=== PATIENT | female | born 1935 | race Caucasian/White ===

== ENCOUNTER 2016-10-04 17:09 | Inpatient (IN) ==
--- NOTE | 2016-10-04 17:28 | Emergency Department Note ---
Disposition Clinical Impression: Fecal impaction, Frail elderly, Hypoxemia, Sacral decubitus ulcer, Pneumonia, CHF (congestive heart failure), Anemia, Sepsis, Chronic kidney disease, stage III (moderate), Cardiac ischemia, Pacemaker, UTI (urinary tract infection) Disposition: Admitted As Inpatient Referrals: NO,PCP [Primary Care Provider] - Forms: ED Satisfaction Letter General Adult HPI - General Chief complaint: ED GI Bleed Stated complaint: rectal bleeding Time Seen by Provider: 10/04/16 17:18 Source: patient, family, EMS Limitations: altered mental status - History of Present Illness HPI Narrative: 81-year-old female comes in from the senior living, there is concern for potential rectal bleeding. The patient is taking anticoagulant injections. She was recently admitted to our hospital for what the family describes as a heart attack. She is DNR comfort care per her senior living paperwork and per her two relatives who are here with her. The patient denies any chest pain she has had a slight cough and some shortness of breath. She denies abdominal pain vomiting or diarrhea. There is no history of headache neck stiffness rash or fever no acute confusion convulsion dysarthria or difficulty moving the arms or legs independently. There is no history of weakness on one side of the body. No falls or injuries. There is no history of leg swelling. No history of vomiting bloody material. No history of urinary symptoms or bleeding from any other region apart from the rectal area. 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 Pain Scale: 9 - Related Data Home Medications Medication Instructions Recorded Confirmed Aspirin [Lo-Dose Aspirin EC] 81 mg PO QAM 09/16/16 09/16/16 Atorvastatin [Lipitor] 40 mg PO QPM 09/16/16 09/16/16 Cranberry Fruit Extract/Vit C [Azo 3 cap PO QAM 09/16/16 09/16/16 Cranberry Softgel] Levothyroxine Sodium [Levoxyl] 100 mcg PO QAM 09/16/16 09/16/16 Metoprolol XL (24 HR) Succ [Toprol 50 mg PO QAM 09/16/16 09/16/16 Xl] Multivit-Min/FA/Lycopen/Lutein 1 tab PO QAM 09/16/16 09/16/16 [Adults 50+ Multivitamin Tablet] [place]-3/Dha/Epa/Fish Oil [Fish Oil 1 cap PO QAM 09/16/16 09/16/16 1,000 mg Softgel] Previous Rx's Medication Instructions Recorded Acetaminophen [Tylenol] 650 mg PO Q6HR PRN #0 tablet 10/01/16 Amiodarone [Cordarone] 200 mg PO DAILY 30 Days 10/01/16 Amoxicillin/Clavulanate [Augmentin] 875 mg PO BIDWM 3 Days 10/01/16 Apixaban [Eliquis] 2.5 mg PO BID 30 Days 10/01/16 Budesonide/Formoterol 160/4.5 2 puff IH BIDR inhaler 10/01/16 [Symbicort 160/4.5] Calcitriol [Rocaltrol] 0.25 mcg PO DAILY capsule 10/01/16 Clopidogrel [Plavix] 75 mg PO DAILY tablet 10/01/16 Furosemide [Lasix] 20 mg PO Q12HR 30 Days 10/01/16 GuaiFENesin/Dextromethorphan 5 ml PO Q4HR PRN #0 udc 10/01/16 [Robitussin/Dm] HYDROcodone/Acet 5/325 mg [[place] 1 tab PO Q4HR PRN 7 Days 10/01/16 5-325 mg] Ipratropium/Albuterol Neb [Duoneb] 3 ml IH [id number] PRN #0 inhsol 10/01/16 Levofloxacin [Levaquin] 750 mg PO ONCE 1 Days 10/01/16 Nitroglycerin 0.4 mg SL Q5MIN PRN #0 tab.subl 10/01/16 Allergies Allergy/AdvReac Type Severity Reaction Status Date / Time Sulfa (Sulfonamide AdvReac Anaphylaxis Verified 09/16/16 10:00 Antibiotics) All systems ED: reviewed and negative except as stated. Past Medical History - Past Medical History Medical history: Reports: hyperlipidemia, hypertension, myocardial infarction, renal disease, thyroid disease Psychiatric history: Reports: no psych history - Social History Smoking Status: Former smoker Smokeless Tobacco Status: No Alcohol use: Reports: none Drug use: Reports: none Physical Exam - General Limitations: age General appearance: alert, in no apparent distress - Head Head exam: atraumatic, normocephalic, normal inspection - Eye Eye exam: Present: normal appearance, EOMI, miosis. Absent: scleral icterus, conjunctival injection, nystagmus, mydriasis - ENT ENT exam: normal exam, normal oropharynx, mucous membranes moist, TM's normal bilaterally, normal external ear exam - Neck Neck exam: Present: normal inspection, full ROM, trachea midline. Absent: tenderness, meningismus - Chest Chest inspection: Present: symmetric chest wall rise. Absent: tenderness - Respiratory Respiratory exam: Present: normal lung sounds bilaterally. Absent: respiratory distress - Cardiovascular Cardiovascular exam: Present: regular rate, normal rhythm, normal heart sounds - Abdominal Exam Abdominal exam: Present: soft, Non-Tender. Absent: tenderness, distention, guarding, rebound, rigidity, trauma - Rectal Exam Precision Thread Grinder Operator present during exam: Yes (Violetta/nurse) Rectal exam: Present: fecal impaction, other (Sacral decubitus oozing bright red blood and no major bleeding, the anus is somewhat dilated with stool packed in the rectal region appears to be a stool ball. No bloody stool or blackened stool is noted.). Absent: black stool, bloody stool - Female Precision Thread Grinder Operator present during exam: Yes - Extremities Exam Extremities exam: Present: normal inspection, full ROM, normal capillary refill , pedal edema. Absent: tenderness, joint swelling, calf tenderness - Expanded Lower Extremity Exam Hip/Pelvis exam: Present: normal inspection. Absent: tenderness Upper leg exam: Present: normal inspection. Absent: tenderness Knee exam: Present: normal inspection. Absent: tenderness Lower leg exam: Present: normal inspection. Absent: tenderness Ankle exam: Present: normal inspection. Absent: tenderness Foot/toe exam: Present: swelling. Absent: tenderness Neurovascular/Tendon exam: Present: normal capillary refill. Absent: motor deficit, sensory deficit, tendon deficit - Back Exam Back exam: Present: normal inspection, full ROM. Absent: tenderness, CVA tenderness (R), CVA tenderness (L), vertebral tenderness - Neurological Exam Neurological exam: Present: alert, CN II-XII intact. Absent: motor sensory deficit - Psychiatric Psychiatric exam: Present: normal affect - Skin Skin exam: Present: warm, dry, intact, normal color. Absent: rash, cyanosis, diaphoresis, erythema, pallor, mottled Course Vital Signs Temperature 0 F L 10/04/16 17:10 Pulse Rate 65 10/04/16 17:10 Respiratory Rate 22 10/04/16 17:10 Blood Pressure 125/49 10/04/16 17:10 O2 Sat by Pulse Oximetry 87 L 10/04/16 17:10 Temperature 97.6 F 10/04/16 18:46 Pulse Rate 65 10/04/16 19:10 Respiratory Rate 24 10/04/16 19:10 Blood Pressure 138/105 10/04/16 19:10 O2 Sat by Pulse Oximetry 92 L 10/04/16 19:10 Oxygen Delivery Oxygen Delivery Nasal Cannula Medical Decision Making - MDM Narrative Medical decision making narrative: The patient has significant opacification of her lungs, she is hypoxemic, she has an elevated BNP, likely superimposed pneumonitis and heart failure compounded by coronary ischemia. She appears to have urinary infectious changes as well. IV antibiotics initiated, worsening renal function noted. I discussed the case with the hospitalist on-call Dr. Mccallum was accepted the patient to their care. The patient and family are highly amenable to admission for further treatment. THe patient meets sepsis criteria, judicious fluid management secondary to CHF and coronary ischemia is warranted. The patient is DNR comfort care however she is requiring oxygen at this time and has marked pulmonary changes, further evaluation and management or the hospitalist. - Lab Data Lab results reviewed: Yes I reviewed the patient's lab results. Result diagrams: 10/04/16 17:51 10/04/16 17:51 Lab Results 10/04/16 10/04/16 10/04/16 Range/Units 17:51 17:51 17:51 WBC 12.7 H (4.3-11.1) K/mcL RBC 2.89 L (3.82-4.97) M/mcL Hgb 8.0 L (11.5-15.4) g/dL Hct 25.7 L (35.3-44.9) % MCV 88.9 (83.0-100.0) fL MCH 27.7 L (28.0-33.3) pg MCHC 31.1 L (31.6-35.5) g/dL RDW 23.9 H (11.5-14.5) % Plt Count 179 (140-400) K/mcL MPV 10.8 (9.4-12.4) fL Immature Gran % 0.9 (0-4) % Seg Neutrophils % 84.6 % Lymphocytes % 8.2 % Monocytes % 6.0 % Eosinophils % 0.1 % Basophils % 0.2 % Neutrophils # 10.7 H (1.6-8.9) K/mcL Lymphocytes # 1.0 (0.6-4.6) K/mcL Monocytes # 0.8 (0.0-1.3) K/mcL Eosinophils # 0.0 (0.0-0.6) K/mcL Basophils # 0.0 (0.0-0.2) K/mcL Nucleated RBCs/100 WBC 0.9 H (0) /100 WBC Hypochromasia Present A (Not Present) Anisocytosis 1+ A (Not Present) Microcytosis Present A (Not Present) Macrocytosis Present A (Not Present) PT 22.1 H (9.4-12.1) Seconds INR 2.0 APTT 37.4 H (26.0-36.0) Seconds Sodium (136-145) mEq/L Potassium (3.5-4.5) mEq/L Chloride (98-109) mEq/L Carbon Dioxide (19-29) mEq/L BUN (7-20) mg/dL Creatinine (0.57-1.11) mg/dL Est GFR ( Amer) (> 60) Est GFR (Non-Af Amer) (> 60) BUN/Creatinine Ratio (6-26) Glucose (70-99) mg/dL Calculated Osmolality (280-300) Lactic Acid 1.7 (0.5-2.2) mmol/L Calcium (8.6-10.8) mg/dL Total Bilirubin (0.2-1.2) mg/dL Direct Bilirubin (0.0-0.5) mg/dL Indirect Bilirubin (0.0-1.2) mg/dL AST (5-34) Units/L ALT (0-55) Units/L Alkaline Phosphatase (38-126) Units/L Troponin I (0-0.03) ng/mL C-Reactive Protein (Less than 5) mg/L B-Natriuretic Peptide (0-100) pg/mL Serum Total Protein (6.0-8.3) g/dL Albumin (3.5-5.0) g/dL Globulin (2.4-3.5) g/dL Albumin/Globulin Ratio (1.1-2.2) Urine Color (Yellow) Urine Clarity (Clear) Urine pH (5.0-8.0) pH Units Ur Specific [place] (1.010-1.025) Urine Protein (Neg-Trace) mg/dL Urine Glucose (UA) (Normal) mg/dL Urine Ketones (Negative) mg/dL Urine Blood (Negative) Urine Nitrite (Negative) Urine Bilirubin (Negative) Urine Urobilinogen (Normal) mg/dL Ur Leukocyte Esterase (Negative) Urine Microscopic RBC (0-3) per hpf Urine Microscopic WBC (0-3) per hpf Ur Squamous Epith Cells (None-Few) per lpf Ur Culture Indicated? (NO) 10/04/16 10/04/16 10/04/16 Range/Units 17:51 17:51 17:51 WBC (4.3-11.1) K/mcL RBC (3.82-4.97) M/mcL Hgb (11.5-15.4) g/dL Hct (35.3-44.9) % MCV (83.0-100.0) fL MCH (28.0-33.3) pg MCHC (31.6-35.5) g/dL RDW (11.5-14.5) % Plt Count (140-400) K/mcL MPV (9.4-12.4) fL Immature Gran % (0-4) % Seg Neutrophils % % Lymphocytes % % Monocytes % % Eosinophils % % Basophils % % Neutrophils # (1.6-8.9) K/mcL Lymphocytes # (0.6-4.6) K/mcL Monocytes # (0.0-1.3) K/mcL Eosinophils # (0.0-0.6) K/mcL Basophils # (0.0-0.2) K/mcL Nucleated RBCs/100 WBC (0) /100 WBC Hypochromasia (Not Present) Anisocytosis (Not Present) Microcytosis (Not Present) Macrocytosis (Not Present) PT (9.4-12.1) Seconds INR APTT (26.0-36.0) Seconds Sodium 137 (136-145) mEq/L Potassium 3.8 (3.5-4.5) mEq/L Chloride 104 (98-109) mEq/L Carbon Dioxide 19 (19-29) mEq/L BUN 85 H (7-20) mg/dL Creatinine 2.12 H (0.57-1.11) mg/dL Est GFR ( Amer) 27 L (> 60) Est GFR (Non-Af Amer) 22 L (> 60) BUN/Creatinine Ratio 40 H (6-26) Glucose 103 H (70-99) mg/dL Calculated Osmolality 310 H (280-300) Lactic Acid (0.5-2.2) mmol/L Calcium 10.1 (8.6-10.8) mg/dL Total Bilirubin 1.7 H (0.2-1.2) mg/dL Direct Bilirubin 0.7 H (0.0-0.5) mg/dL Indirect Bilirubin 1.0 (0.0-1.2) mg/dL AST 49 H (5-34) Units/L ALT 48 (0-55) Units/L Alkaline Phosphatase 79 (38-126) Units/L Troponin I 0.16 H* (0-0.03) ng/mL C-Reactive Protein 69 H (Less than 5) mg/L B-Natriuretic Peptide 4189 H (0-100) pg/mL Serum Total Protein 6.1 (6.0-8.3) g/dL Albumin 2.3 L (3.5-5.0) g/dL Globulin 3.8 H (2.4-3.5) g/dL Albumin/Globulin Ratio 0.6 L (1.1-2.2) Urine Color (Yellow) Urine Clarity (Clear) Urine pH (5.0-8.0) pH Units Ur Specific [place] (1.010-1.025) Urine Protein (Neg-Trace) mg/dL Urine Glucose (UA) (Normal) mg/dL Urine Ketones (Negative) mg/dL Urine Blood (Negative) Urine Nitrite (Negative) Urine Bilirubin (Negative) Urine Urobilinogen (Normal) mg/dL Ur Leukocyte Esterase (Negative) Urine Microscopic RBC (0-3) per hpf Urine Microscopic WBC (0-3) per hpf Ur Squamous Epith Cells (None-Few) per lpf Ur Culture Indicated? (NO) 10/04/16 Range/Units 18:13 WBC (4.3-11.1) K/mcL RBC (3.82-4.97) M/mcL Hgb (11.5-15.4) g/dL Hct (35.3-44.9) % MCV (83.0-100.0) fL MCH (28.0-33.3) pg MCHC (31.6-35.5) g/dL RDW (11.5-14.5) % Plt Count (140-400) K/mcL MPV (9.4-12.4) fL Immature Gran % (0-4) % Seg Neutrophils % % Lymphocytes % % Monocytes % % Eosinophils % % Basophils % % Neutrophils # (1.6-8.9) K/mcL Lymphocytes # (0.6-4.6) K/mcL Monocytes # (0.0-1.3) K/mcL Eosinophils # (0.0-0.6) K/mcL Basophils # (0.0-0.2) K/mcL Nucleated RBCs/100 WBC (0) /100 WBC Hypochromasia (Not Present) Anisocytosis (Not Present) Microcytosis (Not Present) Macrocytosis (Not Present) PT (9.4-12.1) Seconds INR APTT (26.0-36.0) Seconds Sodium (136-145) mEq/L Potassium (3.5-4.5) mEq/L Chloride (98-109) mEq/L Carbon Dioxide (19-29) mEq/L BUN (7-20) mg/dL Creatinine (0.57-1.11) mg/dL Est GFR ( Amer) (> 60) Est GFR (Non-Af Amer) (> 60) BUN/Creatinine Ratio (6-26) Glucose (70-99) mg/dL Calculated Osmolality (280-300) Lactic Acid (0.5-2.2) mmol/L Calcium (8.6-10.8) mg/dL Total Bilirubin (0.2-1.2) mg/dL Direct Bilirubin (0.0-0.5) mg/dL Indirect Bilirubin (0.0-1.2) mg/dL AST (5-34) Units/L ALT (0-55) Units/L Alkaline Phosphatase (38-126) Units/L Troponin I (0-0.03) ng/mL C-Reactive Protein (Less than 5) mg/L B-Natriuretic Peptide (0-100) pg/mL Serum Total Protein (6.0-8.3) g/dL Albumin (3.5-5.0) g/dL Globulin (2.4-3.5) g/dL Albumin/Globulin Ratio (1.1-2.2) Urine Color Yellow (Yellow) Urine Clarity Cloudy A (Clear) Urine pH 5.5 (5.0-8.0) pH Units Ur Specific [place] 1.018 (1.010-1.025) Urine Protein Negative (Neg-Trace) mg/dL Urine Glucose (UA) Normal (Normal) mg/dL Urine Ketones Negative (Negative) mg/dL Urine Blood Large H (Negative) Urine Nitrite Negative (Negative) Urine Bilirubin Negative (Negative) Urine Urobilinogen Normal (Normal) mg/dL Ur Leukocyte Esterase Moderate H (Negative) Urine Microscopic RBC 5-15 H (0-3) per hpf Urine Microscopic WBC 15-30 H (0-3) per hpf Ur Squamous Epith Cells Moderate H (None-Few) per lpf Ur Culture Indicated? YES A (NO) - Radiology Data Radiology results reviewed: Yes I reviewed the patient's radiology results.
[2016-10-04] MEDS ORDERED: 0.9 % Sodium Chloride 1,000 ML IVC ONE (17:33)
[2016-10-04 18:12] LABS: Basophils % 0.2 %; Eosinophils % 0.1 %; Hematocrit 25.7 % (35.3-44.9); Immature Granulocytes % 0.9 % (0-4); Lymphocytes % 8.2 %; Mean Corpuscular HGB Conc 31.1 g/dL (31.6-35.5); Mean Corpuscular Hemoglobin 27.7 pg (28.0-33.3); Mean Corpuscular Volume 88.9 fL (83.0-100.0); Mean Platelet Volume 10.8 fL (9.4-12.4); Monocytes # 0.8 K/mcL (0.0-1.3); Neutrophils # 10.7 K/mcL (1.6-8.9); Nucleated Red Blood Cells 0.9 /100 WBC (0); Platelet Count 179 K/mcL (140-400); Red Blood Count 2.89 M/mcL (3.82-4.97); Red Cell Distribution Width 23.9 % (11.5-14.5); Segmented Neutrophils % 84.6 %
[2016-10-04 18:13] LABS: Prothrombin Time 22.1 Seconds (9.4-12.1)
[2016-10-04 18:16] LABS: Activated Partial Thrombo Time 37.4 Seconds (26.0-36.0)
[2016-10-04 18:26] LABS: Albumin 2.3 g/dL (3.5-5.0); Albumin/Globulin Ratio 0.6 (1.1-2.2); Bilirubin,Direct 0.7 mg/dL (0.0-0.5); Bilirubin,Total 1.7 mg/dL (0.2-1.2); Calcium 10.1 mg/dL (8.6-10.8); Globulin 3.8 g/dL (2.4-3.5); Potassium 3.8 mEq/L (3.5-4.5); Total Protein 6.1 g/dL (6.0-8.3)
[2016-10-04 18:32] LABS: Bilirubin,Urine Negative (Negative); Blood,Urine Large (Negative); Clarity,Urine Cloudy (Clear); Color,Urine Yellow (Yellow); Glucose,Urine (UA) Normal (Normal); Ketones,Urine Negative (Negative); Leukocyte Esterase,Urine Moderate (Negative); Nitrite,Urine Negative (Negative); PH,Urine 5.5 pH Units (5.0-8.0); Protein,Urine Negative (Neg-Trace); Specific Gravity,Urine 1.018 (1.010-1.025); Urobilinogen,Urine Normal (Normal)
[2016-10-04 18:34] LABS: Anisocytosis 1+ (Not Present); Hypochromasia Present (Not Present); Macrocytosis Present (Not Present); Microcytosis Present (Not Present)
[2016-10-04] MEDS ORDERED: Aspirin 325 MG TABLET PO ONE (18:39)
[2016-10-04 18:49] LABS: Squamous Epithelial Cell,Urine Moderate per lpf (None-Few)
[2016-10-04 18:50] LABS: WBC,Urine 15-30 per hpf (0-3)
[2016-10-04] MEDS ORDERED: Piperacillin/Tazobactam 3.375 GM in D5% in Water (Mini-Bag+) 100 ML IVPB ONE (19:17)
[2016-10-04] MEDS ORDERED: Levofloxacin 750 MG/150 ML 750 MG/150 ML BAG IVPB SCH (19:20)
[2016-10-04] MEDS ORDERED: Naloxone 0.4 MG/ML INJ IVP PRN (22:50)
[2016-10-04] MEDS ORDERED: Acetaminophen 325 MG TABLET PO PRN (22:50)
[2016-10-04] MEDS ORDERED: Albuterol 2.5 MG/3 ML NEBULIZER IH PRN (23:03)
--- NOTE | 2016-10-04 23:12 | Internal Med History&Physical ---
Date of Encounter: 10/05/16 Time of Encounter: 22:30 Assessment and Plan (1) Acute respiratory failure with hypoxia Current visit: Yes Status: Acute 1 she is hypoxic she has an elevated BNP x-ray with left sided opacity pleural effusion likely pneumonia and heart failure. Will obtain CT chest to rule out fluid or possible mucus plugging. Possible thoracentesis for comfort. 2 continue with oxygen titrated to maintain SpO2 > 92% 3 lasix 4 duonebs (2) Pleural effusion on left Current visit: Yes Status: Acute [address] of chest- possible thoracentesis in a.m. 2 oxygen to maintain SP O2 greater than 92% 3 Lasix/antibiotics (3) CHF (congestive heart failure) Current visit: Yes Status: Acute 1 patient's EF is 40%- oxygen as needed 2 we will continue with Lasix 3 monitor intake and output daily weights 4 low-sodium diet Qualifiers: Congestive heart failure type: systolic Congestive heart failure chronicity : acute on chronic Qualified Code(s): I50.23 - Acute on chronic systolic ( congestive) heart failure (4) CKD (chronic kidney disease) stage 3, GFR 30-59 ml/min Current visit: Yes Status: Acute 1 patient's creatinine is increased to 2.12 previous creatinine 1.8- 2.0 - will monitor creatinine 2 we will avoid nephrotoxins 3. will monitor I/O (5) DVT prophylaxis Current visit: No Status: Chronic 1 SAGE deras patient is on Eliquis Internal Medicine - H&P: HPI Chief complaint: rectal bleeding Admitted From: Long-term Nursing Facility Plans for Post Hospital Care: Transfer [facility] History of present illness: Ms. Hartman is a 81 year old female past medical history of hyperlipidemia hypertension AR atrial fibrillation pacemaker placement congestive heart failure CK D3. The patient was admitted recently to this facility with a non- STEMI, she was treated medically and was discharged to a extended care facility for further rehabilitation. According to [facility] paperwork patient is a DNR CC. Information was obtained from medical records due to the patient's increased shortness of breath and inability to answer questions. The patient was sent to the ED by the nursing staff at the [facility] stating that she was experiencing bleeding from her rectum. The patient is on Eliquis for her atrial fibrillation. Per ER report the patient had a pressure ulcer on her sacrum which was oozing blood. Her anus is dilated with stool impacted into the rectal vault. There is no bloody stool or black stool in the rectum. The patient appeared to be in respiratory distress she is hypoxic 87% SPO2 chest x- ray revealed a near complete opacification of the left lung suspicious for large left pleural effusion with partial atelectasis of the left lung. Urinalysis also revealed a UTI. Her white count is 12.7 BUN is 85 and creatinine was 2.12 Blood cultures were obtained the patient was initiated on IV antibiotics. She has been admitted for further workup evaluation. Presently the patient appears to be in moderate respiratory distress she is audible wheezes and rhonchi. She is 93% on 3 L nasal cannula. She denies any chest pain this time. I will obtain a STAT CT of her chest to evaluate pleural effusion and possible need for thoracentesis. I discussed the case with Dr Velarde who agrees with plan. Past Med Surg Social Fam HX - Past Medical History Medical history: hyperlipidemia, hypertension, myocardial infarction, renal disease, thyroid disease Psychiatric history: no psych history - Social History Smoking Status: Former smoker Smokeless Tobacco Status: No Alcohol use: none Drug use: none - Family History Daughter Adopted: No Family Member Ethnicity: Non- Living Status: Internal Medicine - H&P: Meds Aspirin [Lo-Dose Aspirin EC] 81 mg PO QAM 09/16/16 [History] Atorvastatin [Lipitor] 40 mg PO QPM 09/16/16 [History] Cranberry Fruit Extract/Vit C [Azo Cranberry Softgel] 3 cap PO QAM 09/16/16 [ History] Levothyroxine Sodium [Levoxyl] 100 mcg PO QAM 09/16/16 [History] Metoprolol XL (24 HR) Succ [Toprol Xl] 50 mg PO QAM 09/16/16 [History] Multivit-Min/FA/Lycopen/Lutein [Adults 50+ Multivitamin Tablet] 1 tab PO QAM [History] [place]-3/Dha/Epa/Fish Oil [Fish Oil 1,000 mg Softgel] 1 cap PO QAM 09/16/16 [ History] Acetaminophen [Tylenol] 650 mg PO Q6HR PRN #0 tablet 10/01/16 [Rx] Amiodarone [Cordarone] 200 mg PO DAILY 30 Days 10/01/16 [Rx] Amoxicillin/Clavulanate [Augmentin] 875 mg PO BIDWM 3 Days 10/01/16 [Rx] Apixaban [Eliquis] 2.5 mg PO BID 30 Days 10/01/16 [Rx] Budesonide/Formoterol 160/4.5 [Symbicort 160/4.5] 2 puff IH BIDR inhaler [Rx] Calcitriol [Rocaltrol] 0.25 mcg PO DAILY capsule 10/01/16 [Rx] Clopidogrel [Plavix] 75 mg PO DAILY tablet 10/01/16 [Rx] Furosemide [Lasix] 20 mg PO Q12HR 30 Days 10/01/16 [Rx] GuaiFENesin/Dextromethorphan [Robitussin/Dm] 5 ml PO Q4HR PRN #0 udc 10/01/16 [ Rx] HYDROcodone/Acet 5/325 mg [Drew 5-325 mg] 1 tab PO Q4HR PRN 7 Days 10/01/16 [Rx ] Ipratropium/Albuterol Neb [Duoneb] 3 ml IH [id number] PRN #0 inhsol 10/01/16 [Rx] Levofloxacin [Levaquin] 750 mg PO ONCE 1 Days 10/01/16 [Rx] Nitroglycerin 0.4 mg SL Q5MIN PRN #0 tab.subl 10/01/16 [Rx] Allergies Sulfa (Sulfonamide Antibiotics) Adverse Reaction (Verified 09/16/16 10:00) Anaphylaxis ROS unobtainable: other All Systems PM: A 10-system review of systems was performed and is negative for pertinent findings except as documented above in the HPI. Review of systems: Unable to radiate due to shortness of breath - Constitutional Vitals: Temp Pulse Resp BP Pulse Ox 98.1 F 61 16 137/88 91 L 10/04/16 22:12 10/04/16 22:12 10/04/16 22:12 10/04/16 22:12 10/04/16 22:12 Exam: Moderate respiratory distress - Head Head exam: Present: atraumatic, normocephalic - Neck Neck exam general surgery: Present: supple, trachea midline. Absent: lymphadenopathy - Respiratory Respiratory exam: Present: respiratory distress, rhonchi, wheezes. Absent: accessory muscle use, rales Additional comments: Audible wheezes, rhonchi - Cardiovascular Cardiovascular exam: Present: distant heart sounds, RRR, +S1, +S2. Absent: diastolic murmur, gallop, rubs, systolic murmur - GI/Abdominal GI/Abdominal exam: Present: normal bowel sounds, soft, no peritoneal signs. Absent: distended, tenderness - Rectal Rectal exam: Present: fecal impaction - Neurological Exam Neurological exam: Present: oriented X3. Absent: pronater drift, facial droop, speech deficit - Skin Skin exam: Present: dry, intact Additional comments: Ecchymosis different stages of healing Internal Med - H&P Results - Labs CBC & Chem 7: 10/04/16 17:51 10/04/16 17:51 - Diagnostic Studies Chest x-ray Additional comments: Per radiology read near-complete opacification of the left lung is suspicious for large left pleural effusion with probable partial atelectasis of the left lung. Superimposed edema or pneumonia is suspected in both lungs
[2016-10-05 05:09] LABS: Basophils % 0.1 %; Eosinophils % 0.1 %; Hematocrit 25.1 % (35.3-44.9); Hemoglobin 7.8 g/dL (11.5-15.4); Immature Granulocytes % 0.7 % (0-4); Lymphocytes # 1.2 K/mcL (0.6-4.6); Lymphocytes % 7.1 %; Mean Corpuscular HGB Conc 31.1 g/dL (31.6-35.5); Mean Corpuscular Hemoglobin 27.8 pg (28.0-33.3); Mean Corpuscular Volume 89.3 fL (83.0-100.0); Mean Platelet Volume 10.7 fL (9.4-12.4); Monocytes % 5.9 %; Nucleated Red Blood Cells 0.8 /100 WBC (0); Platelet Count 157 K/mcL (140-400); Red Blood Count 2.81 M/mcL (3.82-4.97); Red Cell Distribution Width 23.9 % (11.5-14.5); Segmented Neutrophils % 86.1 %
[2016-10-05 05:23] LABS: Calcium 9.9 mg/dL (8.6-10.8); Potassium 3.9 mEq/L (3.5-4.5)
[2016-10-05 05:27] LABS: Neutrophils # 14.5 K/mcL (1.6-8.9)
[2016-10-05 05:59] LABS: Anisocytosis 2+ (Not Present); Basophilic Stippling 2+ (Not Present); Macrocytosis Present (Not Present); Platelet Estimate Normal (Normal); Polychromasia 2+ (Not Present)
[2016-10-05 06:00] LABS: Poikilocytosis 1+ (Not Present)
[2016-10-05] MEDS ORDERED: Piperacillin/Tazobactam 3.375 GM in D5% in Water (Mini-Bag+) 100 ML IVPB SCH ×2 (06:00→08:00)
[2016-10-05 06:01] LABS: Target Cells 1+ (Not Present)
[2016-10-05] MEDS: Ipratropium/Albuterol Neb 3 ML IH SCH ×4 (06:49→22:29)
[2016-10-05] MEDS ORDERED: Levofloxacin 750 MG/150 ML 750 MG/150 ML BAG IVPB SCH (09:00)
[2016-10-05] MEDS: Furosemide 40 MG/4 ML VIAL IVP SCH ×2 (10:30→17:03)
[2016-10-05] MEDS: *HR* Morphine 2 MG/ML SYRINGE IVP PRN ×2 (10:30→17:03)
[2016-10-05] MEDS ORDERED: *HR* Heparin 5,000 UNIT/ML VIAL IVP ONE (13:13)
[2016-10-05] MEDS ORDERED: *HR* Heparin 5,000 UNIT/ML VIAL IVP PRN ×2 (13:13)
[2016-10-05] MEDS ORDERED: Heparin 25,000 UNIT/500 ML D5W 25,000 UNIT/500 ML MLS IVC SCH (13:15)
[2016-10-05] MEDS ORDERED: *HR* HYDROcodone/Acet 7.5/325 mg TABLET PO PRN (13:39)
[2016-10-05 13:43] LABS: Hematocrit 25.7 % (35.3-44.9); Immature Platelets 3.6 % (1.1-6.1); Mean Corpuscular HGB Conc 31.1 g/dL (31.6-35.5); Mean Corpuscular Hemoglobin 28.1 pg (28.0-33.3); Mean Corpuscular Volume 90.2 fL (83.0-100.0); Mean Platelet Volume 10.7 fL (9.4-12.4); Red Blood Count 2.85 M/mcL (3.82-4.97); Red Cell Distribution Width 24.9 % (11.5-14.5)
[2016-10-05 13:50] LABS: Prothrombin Time 21.8 Seconds (9.4-12.1)
[2016-10-05 13:53] LABS: Activated Partial Thrombo Time 37.9 Seconds (26.0-36.0)
--- NOTE | 2016-10-05 14:59 | Internal Med Progress Note ---
Date of Encounter: 10/05/16 Time of Encounter: 14:51 - Assessment and plan (1) Acute respiratory failure with hypoxia Current Visit: Yes Status: Acute Assessment and plan: CTA showed b/l pulmonary edema less likely pnuemonia,started on IV lasix. saturating well on 4 l now, will continue the NC trace pleural effusion, so will not benefit from thoracentesis. (2) CHF (congestive heart failure) Current Visit: Yes Status: Acute Assessment and plan: patient's EF is 40%- oxygen as needed we will continue with Lasix monitor intake and output daily weights low-sodium diet Qualifiers: Congestive heart failure type: systolic Congestive heart failure chronicity : acute on chronic Qualified Code(s): I50.23 - Acute on chronic systolic ( congestive) heart failure (3) CKD (chronic kidney disease) stage 3, GFR 30-59 ml/min Current Visit: Yes Status: Acute Assessment and plan: patient's creatinine is increased to 2.12 previous creatinine 1.8- 2.0 - will monitor creatinine we will avoid nephrotoxins will monitor I/O (4) Frail elderly Current Visit: Yes Status: Acute (5) Atrial fibrillation Current Visit: No Status: Chronic Assessment and plan: rate controlled for now. home med list shows eliquis , however on questioning the daughter in law, she says she was not on eliquis at home she may have been added when she left for [place] last time/ will start on heparin drip as and stop elliquis for now. Qualifiers: Atrial fibrillation type: chronic Qualified Code(s): I48.2 - Chronic atrial fibrillation (6) CAD (coronary artery disease) Current Visit: No Status: Chronic Assessment and plan: EF 40%. Recommend medical management as per cardiology and patient's wish. Continue ASA, Plavix, statin, BB, amiodarone. Not on ACEI/ARB due to CKD stage 3 /4. Qualifiers: Coronary Disease-Associated Artery/Lesion type: [place] artery [place] vs. transplanted heart: [place] heart Associated angina: without angina Qualified Code(s): I25.10 - Atherosclerotic heart disease of [place] coronary artery without angina pectoris (7) Ischemia of both lower extremities Current Visit: Yes Status: Acute Assessment and plan: she was noted to have no peripheral pulses b/l. home meds include elliquis on the list, less likely to have embolized or have a clot with elliquis, however unsure if she was taking that at [place]. severe pain, both limbs are cold and mottling. will start on heparin drip, unable to get vascular today as there is no coverage today. cant get angioplasty given CKD> will consult vascular tomm. case has been discussed with the POA and the patient, they agreed with the plan. - Time Spent With Patient 25 - 35 minutes - Subjective Interval history: seen at the bedside, c/o left leg pain below her knees. no swelling but has mottling discolourtaion in both her feet, no peripheral pulses felt b/l. appears to be mildly dyspneic , denies fever. - Constitutional Vitals: Temp Pulse Resp BP Pulse Ox 97.4 F L 73 20 120/60 92 L 10/05/16 05:56 10/05/16 05:56 10/05/16 05:56 10/05/16 05:56 10/05/16 05:56 General appearance: Present: A&O X 2, mild distress Exam: neck- supple chest- b/l occasional creptns, no wheezing cvs-s1 and s2, no mr//g abd-soft, non tender, bs are present ext-no leg edema, has purplish mottling b/l feet, peripheral pulses not palpable. Internal Medicine: Result - Labs CBC & Chem 7: 10/05/16 13:28 10/05/16 03:42 Labs: Short CBC 10/05/16 10/05/16 Range/Units 03:42 13:28 WBC 16.8 H 14.8 H (4.3-11.1) K/mcL Hgb 7.8 L 8.0 L (11.5-15.4) g/dL Hct 25.1 L 25.7 L (35.3-44.9) % Plt Count 157 162 (140-400) K/mcL Neutrophils # 14.5 H (1.6-8.9) K/mcL BMP 10/05/16 03:42 Sodium 137 Potassium 3.9 Chloride 104 Carbon Dioxide 19 BUN 90 H Creatinine 2.11 H Glucose 106 H Calcium 9.9 - ABG Interpretation ABG results: PT/INR, D-dimer PT 21.8 Seconds (9.4-12.1) H 10/05/16 13:28 - Impressions Impressions Chest CT 10/04/16 23:01 IMPRESSION: 1. Scattered ground-glass opacities throughout both lungs, suspicious for edema. Pneumonia may also be considered in differential diagnosis. Findings appear worse since comparison exam. Trace bilateral pleural effusion. 2. Cardiomegaly and CAD. D/ / 10/05/2016 07:39:29 Moy Paredes MD / earnold Interpreting Provider: Moy Paredes MD - VTE Documentation of Mechanical Device: Graduated compression elastic hosiery Consult Discharge Plan - Plan Referrals: NO,PCP [Primary Care Provider] -
[2016-10-05] MEDS: *HR* Amiodarone 200 MG TABLET PO SCH (17:03)
[2016-10-05 21:08] LABS: Activated Partial Thrombo Time 132.1 Seconds (26.0-36.0)
[2016-10-05 21:29] LABS: Heparin anti-factor XA UFH 1.97 IU/mL (0.30-0.70)
[2016-10-05] MEDS: Budesonide/Formoterol 160/4.5 MDI IH SCH (22:29)
[2016-10-06] MEDS: Haloperidol Lactate 5 MG/ML VIAL IVP PRN ×2 (01:48→09:45)
[2016-10-06] MEDS: Ipratropium/Albuterol Neb 3 ML IH SCH ×3 (04:39→16:10)
[2016-10-06 05:09] LABS: Activated Partial Thrombo Time 178.8 Seconds (26.0-36.0)
[2016-10-06 05:40] LABS: Heparin anti-factor XA UFH 1.7 IU/mL (0.30-0.70)
[2016-10-06] MEDS ORDERED: *HR* Morphine 2 MG/ML SYRINGE IVP PRN (05:40)
--- NOTE | 2016-10-06 07:25 | Arterial Study Report ---
LE Arterial Physiologic Study Patient Name:Mary Anne Hartman Order Number:[id number] Procedure Date:10/05/2016 Date:1935ge:81 yrs Gender:Female Lt BP:110 / mmHg Location:[facility] Room #: 2A45 Software Quality Analyst:Antonio Brandon Referring MD:Robert Ashby MD wholesale and retail merchant:None Reading MD:Nakul Rasmussen MD Primary Indications:Mottling with no pulse found Risk Factors Yes/No Hypertension Yes Hypercholesterolemia Yes Smoker Previous Yes Anticoagulants Yes Hx of CAD/PTCA Yes Impressions: Criticial disease is present in the bialteral lower extremities. RABI: 0.0 LABI: 0.0 Recommendations: Further evaluation is recommended. After imaging the patient returned to their room. Critical findings reported to news librarian in person by Antonio Brandon. Findings LE Arterial Physiologic Exam: Segmental Pressures: Right: The posterior tibial and dorsalis pedis pressure on the right was not obtained secondary to no audible Doppler signal. Left: The posterior tibial and dorsalis pedis pressure on the left was not obtained secondary to no audible Doppler signal. PVR: Right: The PVR waveforms are absent in the right ankle. Left: The PVR waveforms are absent in the left ankle. Physiologic Test Results: No pulse found bilateral. unable to put BP cuff on right arm. Prior Study: No prior study available for comparison. Segmental Pressures Side Location Pressure Index Result Right Posterior Tibial 0 Severely Diminished Right Dorsalis Pedis 0 Severely Diminished Left Posterior Tibial 0 Severely Diminished Left Dorsalis Pedis 0 Severely Diminished Ankle Brachial Index Right Systolic Diastolic SRINI Brachial 1.00 Posterior Tibial 110 1.00 Left Systolic Diastolic SRINI Brachial 110 Updated by Nakul Rasmussen MD on 10/06/2016 7:18:43 AM with Status of Final electronically signed on 10/06/2016 7:19:31 AM with status of Final
[2016-10-06] MEDS ORDERED: Levofloxacin 750 MG/150 ML 750 MG/150 ML BAG IVPB SCH (08:00)
[2016-10-06] MEDS ORDERED: Metoprolol XL (24 HR) Succ 50 MG TAB.ER.24H PO SCH (09:00)
[2016-10-06] MEDS: Furosemide 40 MG/4 ML VIAL IVP SCH (09:40)
[2016-10-06] MEDS: Budesonide/Formoterol 160/4.5 MDI IH SCH (10:33)
[2016-10-06 12:03] VITALS: BP 98/46
[2016-10-06] MEDS ORDERED: 0.9 % Sodium Chloride 1,000 ML IVC SCH (12:30)
[2016-10-06] MEDS ORDERED: Haloperidol Lactate 5 MG/ML VIAL IVP PRN (12:30)
[2016-10-06] MEDS: *HR* Amiodarone 200 MG TABLET PO SCH (13:07)
--- NOTE | 2016-10-06 13:46 | Vascular/Endovasc Consult Note ---
Date of Encounter: 10/06/16 Time of Encounter: 13:15 Assessment and Plan (1) Frail elderly Current Visit: Yes Status: Acute The patient is in end-stage state. (2) Aortic occlusion Current Visit: Yes Status: Acute Profound ischemia of lower extremities. Patient is not a candidate for any intervention. The patient is a DNR which is appropriate for her present state with pulmonary edema and hypoxemia. I discussed in detail with the patient's daughter the ongoing pathophysiology. I have recommended no therapeutic intervention and agree with comfort care principles only. The intravenous heparin drip may be discontinued. (3) CHF (congestive heart failure) Current Visit: No Status: Chronic End-stage congestive heart failure with pulmonary edema and hypoxemia. Qualifiers: Congestive heart failure type: systolic Congestive heart failure chronicity : acute on chronic Qualified Code(s): I50.23 - Acute on chronic systolic ( congestive) heart failure - History of Present Illness Consult date: 10/06/16 Consult reason: Bilateral lower extremity ischemia Chief complaint: Patient is nonverbal History of present illness: Ms. Hartman is a 81 year old female Admitted via the emergency room on October 04 with concern about lower GI bleeding. However the patient was identified as having multiple [facility] including congestive heart failure and hypoxemia and hyponatremia. She was admitted for further treatment and evaluation. She recently had had a myocardial infarction that was a non-STEMI and was treated medically approximately 3 weeks ago. The patient has had a worsening course in regards to her lower extremities. She had coolness and mottling of her feet. This has been progressive. Over the past 12-24 hours the patient has had a significant worsening and progression of the mottling up into the thighs. An ankle brachial index was performed yesterday which reveals no measurable blood pressure at the ankle on either side and essentially flat line waveforms. According to the family members I was able to speak with that included her daughter she has a history of lower extremity vascular disease. She was judged some years ago not to be a candidate for operative intervention and she has had very limited walking capacity over the past number of years. The patient also made herself a DNR some time ago and intervention is not desired by the family. Past Med Surg Social Fam HX - Past Medical History Medical history: hyperlipidemia, hypertension, myocardial infarction, renal disease, thyroid disease Psychiatric history: no psych history - Past Surgical History Surgical History: cholecystectomy, other (There is also a past history of eye surgery and colon surgery though the specifics of these interventions are not available at the time of this dictation.), pacemaker - Social History Smoking Status: Former smoker Smokeless Tobacco Status: No Alcohol use: none Drug use: none - Family History Daughter Adopted: No Family Member Ethnicity: Non- Living Status: Medications and Allergies Aspirin [Lo-Dose Aspirin EC] 81 mg PO QAM 09/16/16 [History] Atorvastatin [Lipitor] 40 mg PO QPM 09/16/16 [History] Cranberry Fruit Extract/Vit C [Azo Cranberry Softgel] 3 cap PO QAM 09/16/16 [ History] Levothyroxine Sodium [Levoxyl] 100 mcg PO QAM 09/16/16 [History] Metoprolol XL (24 HR) Succ [Toprol Xl] 50 mg PO QAM 09/16/16 [History] Multivit-Min/FA/Lycopen/Lutein [Adults 50+ Multivitamin Tablet] 1 tab PO QAM [History] [place]-3/Dha/Epa/Fish Oil [Fish Oil 1,000 mg Softgel] 1,000 mg PO QAM 09/16/16 [ History] Acetaminophen [Tylenol] 650 mg PO Q6HR PRN #0 tablet 10/01/16 [Rx] Amiodarone [Cordarone] 200 mg PO DAILY 30 Days 10/01/16 [Rx] Apixaban [Eliquis] 2.5 mg PO BID 30 Days 10/01/16 [Rx] Budesonide/Formoterol 160/4.5 [Symbicort 160/4.5] 2 puff IH BIDR inhaler [Rx] Calcitriol [Rocaltrol] 0.25 mcg PO DAILY capsule 10/01/16 [Rx] Clopidogrel [Plavix] 75 mg PO DAILY tablet 10/01/16 [Rx] Furosemide [Lasix] 20 mg PO Q12HR 30 Days 10/01/16 [Rx] GuaiFENesin/Dextromethorphan [Robitussin/Dm] 5 ml PO Q4HR PRN #0 udc 10/01/16 [ Rx] HYDROcodone/Acet 5/325 mg [[place] 5-325 mg] 1 tab PO Q4HR PRN 7 Days 12/28/16 [Rx ] Ipratropium/Albuterol Neb [Duoneb] 3 ml IH [id number] PRN #0 inhsol 10/01/16 [Rx] Nitroglycerin 0.4 mg SL Q5MIN PRN #0 tab.subl 10/01/16 [Rx] Ascorbic Acid [Vitamin C] 500 mg PO DAILY 10/06/16 [History] Allergies Sulfa (Sulfonamide Antibiotics) Adverse Reaction (Verified 09/16/16 10:00) Anaphylaxis ROS unobtainable: due to mental status All Systems Review: A 10-system review of systems was performed and is negative for pertinent findings except as documented above in the HPI. Exam Vital Signs, Last 4 Hours Pulse Resp BP Pulse Ox 10/06/16 11:58 77 18 98/46 93 L 10/06/16 10:33 16 93 L General: Present: Other (The patient is lying in bed. She is nonverbal. She has a white froth around her mouth. She has a deep but regular breathing pattern.) HEENT: Present: Normocephaly Neck: Absent: Tracheal deviation Cardiac: Present: Reg Rate and Rhythm Lungs: Present: Other (A deep irregular breathing pattern with coarse breath sounds bilaterally.) Neuro: Present: Other (Not alert and not responsive. The patient does not react to tactile or verbal stimulation) Abdomen: Present: Soft, Non-tender, Other (Large amount of ecchymosis on the lower third of the abdominal wall from suspected subcutaneous injections for anticoagulation.). Absent: Masses Vascular: Present: Pulse, absent, Other (The patient has no palpable femoral, popliteal, or pedal pulses. Her feet and ankles are ice cold. A warm temperature returns to the lower extremities at the level of the upper third of the calf bilaterally. There is a diffuse and fixed mottling of both lower extremities to a symmetrical effect to the near inguinal level.). Absent: Bruit Skin: Present: Other (Mottling of the skin of both lower extremities. Diffuse ecchymosis of the lower third of the abdomen bilaterally.) Consult Discharge Plan - Plan Referrals: NO,PCP [Primary Care Provider] -
[2016-10-06 13:49] LABS: Basophils % 0.1 %; Hematocrit 25.8 % (35.3-44.9); Hemoglobin 7.5 g/dL (11.5-15.4); Immature Granulocytes % 3.2 % (0-4); Lymphocytes # 1.7 K/mcL (0.6-4.6); Mean Corpuscular HGB Conc 29.1 g/dL (31.6-35.5); Mean Corpuscular Hemoglobin 28.5 pg (28.0-33.3); Mean Corpuscular Volume 98.1 fL (83.0-100.0); Monocytes # 1.1 K/mcL (0.0-1.3); Monocytes % 5.8 %; Neutrophils # 15.6 K/mcL (1.6-8.9); Nucleated Red Blood Cells 1.5 /100 WBC (0); Platelet Count 165 K/mcL (140-400); Red Blood Count 2.63 M/mcL (3.82-4.97); Red Cell Distribution Width 26.2 % (11.5-14.5); Segmented Neutrophils % 81.9 %
--- NOTE | 2016-10-06 13:52 | Palliative - Consult Note ---
Date of Encounter: 10/06/16 Time of Encounter: 13:51 - Assessment and Plan (1) Dyspnea Current Visit: No Status: Chronic Assessment and plan: Medications for pain and for dyspnea were on board. Time of this dictation patient has recently passed. Qualifiers: Dyspnea type: unspecified Qualified Code(s): R06.00 - Dyspnea, unspecified (2) Pain Current Visit: Yes Status: Acute Assessment and plan: Medications were adjusted for the fact the patient was not swallowing. (3) Goals of care, counseling/discussion Current Visit: Yes Status: Acute Assessment and plan: The patient is already DNR comfort care. In the recent past family has not wished to have hospice, however this was not available to them then. At this point in time with the combination of the severe peripheral vascular disease resulting in both legs being acutely ischemic plus S2 far failure in addition to renal failure and the possibility the patient is going into a metabolic respiratory acidosis based on a CO2 of 10 patient now does meet hospice criteria. Since medical power of erisa attorney her [id number] is aware that she is discussing this currently with the family. Patient family wished to go completely comfort care we will discuss with to general inpatient possibly as early as tomorrow. At the time of this part of the dictation I was just informed by the nursing staff the patient had passed. (4) CHF (congestive heart failure) Current Visit: No Status: Chronic Assessment and plan: Patient with history of CHF and MT, the ejection fraction is approximately 40%, however the patient has had worsening just before failure recently. Qualifiers: Congestive heart failure type: systolic Congestive heart failure chronicity : acute on chronic Qualified Code(s): I50.23 - Acute on chronic systolic ( congestive) heart failure (5) PVD (peripheral vascular disease) with claudication Current Visit: Yes Status: Acute Assessment and plan: Peripheral vascular disease not amenable to surgery, recommendation from vascular surgery is not an operative conservative measures only. Palliative-CN HPI - Data of Consult Patient: known to practice within the last 3 years Requesting Physician: Alfonso Sosa MD Primary Care Provider: PCP NO - Consult Narrative Palliative Care/Comfort Measures: Palliative care History of present illness: Ms. Hartman is a 81 year old female With a history of recent MT seen just last month. She did well after that and went out to have rehabilitation, having rehabilitation it is reported that she had 2 bleeding. She was on a look was for atrial fibrillation shoulder ulcer on her sacrum that was losing blood. It was noted at the time of exam that she had a dilated rectum and a impaction. No bloody stool or black stool in the vault at that time. Her since that time the patient has been found to have congestive heart failure, well as modeling and absent pulses in both legs this is consistent with her in the distal aorta. Patient has had in the past for vascular disease that was judged to be nonsurgical. He is DO NOT RESUSCITATE comfort care at this time and family does not wish for the patient to have any procedures done. Patient is currently comfortable and nonverbal. She has been seen by [facility] surgery and a nonsurgical approach has been recommended. CC: Alfonso Sosa MD Rectal bleeding Past Med Surg Social Fam HX - Past Medical History Medical history: hyperlipidemia, hypertension, myocardial infarction, renal disease, thyroid disease Psychiatric history: no psych history - Past Surgical History Surgical History: cholecystectomy, other (There is also a past history of eye surgery and colon surgery though the specifics of these interventions are not available at the time of this dictation.), pacemaker - Social History Smoking Status: Former smoker Smokeless Tobacco Status: No Alcohol use: none Drug use: none - Family History Daughter Adopted: No Family Member Ethnicity: Non- Living Status: Medications and Allergies Aspirin [Lo-Dose Aspirin EC] 81 mg PO QAM 09/16/16 [History] Atorvastatin [Lipitor] 40 mg PO QPM 09/16/16 [History] Cranberry Fruit Extract/Vit C [Azo Cranberry Softgel] 3 cap PO QAM 09/16/16 [ History] Levothyroxine Sodium [Levoxyl] 100 mcg PO QAM 09/16/16 [History] Metoprolol XL (24 HR) Succ [Toprol Xl] 50 mg PO QAM 09/16/16 [History] Multivit-Min/FA/Lycopen/Lutein [Adults 50+ Multivitamin Tablet] 1 tab PO QAM [History] [place]-3/Dha/Epa/Fish Oil [Fish Oil 1,000 mg Softgel] 1,000 mg PO QAM 09/16/16 [ History] Acetaminophen [Tylenol] 650 mg PO Q6HR PRN #0 tablet 10/01/16 [Rx] Amiodarone [Cordarone] 200 mg PO DAILY 30 Days 10/01/16 [Rx] Apixaban [Eliquis] 2.5 mg PO BID 30 Days 10/01/16 [Rx] Budesonide/Formoterol 160/4.5 [Symbicort 160/4.5] 2 puff IH BIDR inhaler [Rx] Calcitriol [Rocaltrol] 0.25 mcg PO DAILY capsule 10/01/16 [Rx] Clopidogrel [Plavix] 75 mg PO DAILY tablet 10/01/16 [Rx] Furosemide [Lasix] 20 mg PO Q12HR 30 Days 10/01/16 [Rx] GuaiFENesin/Dextromethorphan [Robitussin/Dm] 5 ml PO Q4HR PRN #0 udc 10/01/16 [ Rx] HYDROcodone/Acet 5/325 mg [[place] 5-325 mg] 1 tab PO Q4HR PRN 7 Days 10/01/16 [Rx ] Ipratropium/Albuterol Neb [Duoneb] 3 ml IH [id number] PRN #0 inhsol 10/01/16 [Rx] Nitroglycerin 0.4 mg SL Q5MIN PRN #0 tab.subl 10/01/16 [Rx] Ascorbic Acid [Vitamin C] 500 mg PO DAILY 10/06/16 [History] Allergies Sulfa (Sulfonamide Antibiotics) Adverse Reaction (Verified 09/16/16 10:00) Anaphylaxis Palliative Care-Exam - Constitutional Vitals: Temp Pulse Resp BP Pulse Ox 97.4 F L 77 18 98/46 93 L 10/06/16 07:41 10/06/16 11:58 10/06/16 11:58 10/06/16 11:58 10/06/16 11:58 Internal Medicine - CN: Reslt - Labs CBC & Chem 7: 10/06/16 13:33 10/06/16 13:33 - ABG Interpretation ABG results: PT/INR, D-dimer PT 21.8 Seconds (9.4-12.1) H 10/05/16 13:28 Consult Discharge Plan - Plan Referrals: NO,PCP [Primary Care Provider] - Palliative Quality Palliative Quality: Screen for Code Status: Yes, Screen for Goals of Care: Yes, Screen for Pain: Yes, If Pain Regimen Started, Initiate Bowel Regimen: NA, Screen for Nausea/Vomitting: Yes
[2016-10-06] MEDS ORDERED: *HR* OxyCODONE Oral Soln 5 MG/5 ML UD.LIQ PO PRN (13:59)
[2016-10-06 14:02] LABS: Calcium 9.8 mg/dL (8.6-10.8)
[2016-10-06 14:04] LABS: Potassium 5.4 mEq/L (3.5-4.5)
[2016-10-06 14:12] LABS: Activated Partial Thrombo Time 143.8 Seconds (26.0-36.0)
[2016-10-06 14:14] LABS: Platelet Estimate Normal (Normal)
[2016-10-06 14:15] LABS: Anisocytosis 1+ (Not Present); Burr Cells 1+ (Not Present)
--- NOTE | 2016-10-06 14:28 | Electrocardiograph Report ---
[facility] Test Date: 2016-10-04 Pat Name: Mary Anne Hartman Department: 104 Room: 2A45 Gender: F Buffer Chrome: : 1935 Requested By: Raad Blair Order Number: [id number] Reading MD: Cholo Lange MD Measurements Intervals [place] Rate: 66 P: ME: 0 QRS: 16 QRSD: 179 T: 89 QT: 442 QTc: 456 Interpretive Statements UNDERLYING RHYTHM LIKELY ATRIAL FIBRILATION DEMAND VENTICULAR PACING ATYPICAL LBBB Electronically Signed On 10-06-16 14:27:55 EST by Cholo Lange MD
[2016-10-06 14:39] LABS: Heparin anti-factor XA UFH 1.49 IU/mL (0.30-0.70)
--- NOTE | 2016-10-06 18:50 | Discharge Summary ---
Date of Encounter: 10/06/16 Time of Encounter: 18:40 - Discharge Diagnosis (1) Acute respiratory failure with hypoxia Priority: Primary Status: Acute (2) CHF (congestive heart failure) Priority: Primary Status: Acute Qualifiers: Congestive heart failure type: systolic Congestive heart failure chronicity : acute on chronic Qualified Code(s): I50.23 - Acute on chronic systolic ( congestive) heart failure (3) CKD (chronic kidney disease) stage 3, GFR 30-59 ml/min Priority: Secondary Status: Acute (4) Frail elderly Priority: Primary Status: Acute (5) Atrial fibrillation Priority: Secondary Status: Chronic Qualifiers: Atrial fibrillation type: chronic Qualified Code(s): I48.2 - Chronic atrial fibrillation (6) CAD (coronary artery disease) Priority: Secondary Status: Chronic Qualifiers: Coronary Disease-Associated Artery/Lesion type: citizen [place] artery [place] vs. transplanted heart: citizen [place] heart Associated angina: without angina Qualified Code(s): I25.10 - Atherosclerotic heart disease of citizen [place] coronary artery without angina pectoris (7) Ischemia of both lower extremities Priority: Primary Status: Acute - Discharge Medications Home Medications: Aspirin [Lo-Dose Aspirin EC] 81 mg PO QAM 09/16/16 [History] Atorvastatin [Lipitor] 40 mg PO QPM 09/16/16 [History] Cranberry Fruit Extract/Vit C [Azo Cranberry Softgel] 3 cap PO QAM 09/16/16 [ History] Levothyroxine Sodium [Levoxyl] 100 mcg PO QAM 09/16/16 [History] Metoprolol XL (24 HR) Succ [Toprol Xl] 50 mg PO QAM 09/16/16 [History] Multivit-Min/FA/Lycopen/Lutein [Adults 50+ Multivitamin Tablet] 1 tab PO QAM [History] Harvey-3/Dha/Epa/Fish Oil [Fish Oil 1,000 mg Softgel] 1,000 mg PO QAM 09/16/16 [ History] Acetaminophen [Tylenol] 650 mg PO Q6HR PRN #0 tablet 10/01/16 [Rx] Amiodarone [Cordarone] 200 mg PO DAILY 30 Days 10/01/16 [Rx] Apixaban [Eliquis] 2.5 mg PO BID 30 Days 10/01/16 [Rx] Budesonide/Formoterol 160/4.5 [Symbicort 160/4.5] 2 puff IH BIDR inhaler [Rx] Calcitriol [Rocaltrol] 0.25 mcg PO DAILY capsule 10/01/16 [Rx] Clopidogrel [Plavix] 75 mg PO DAILY tablet 10/01/16 [Rx] Furosemide [Lasix] 20 mg PO Q12HR 30 Days 10/01/16 [Rx] GuaiFENesin/Dextromethorphan [Robitussin/Dm] 5 ml PO Q4HR PRN #0 udc 10/01/16 [ Rx] HYDROcodone/Acet 5/325 mg [[place] 5-325 mg] 1 tab PO Q4HR PRN 7 Days 10/01/16 [Rx ] Ipratropium/Albuterol Neb [Duoneb] 3 ml IH [id number] PRN #0 inhsol 10/01/16 [Rx] Nitroglycerin 0.4 mg SL Q5MIN PRN #0 tab.subl 10/01/16 [Rx] Ascorbic Acid [Vitamin C] 500 mg PO DAILY 10/06/16 [History] Allergies/Adverse Reactions: Allergies Sulfa (Sulfonamide Antibiotics) Adverse Reaction (Verified 09/16/16 10:00) Anaphylaxis Date of admission: 10/05/16 15:33 Primary care physician: PCP NO Consults: 10/06/16 12:41 Consult to Palliative Care [CONS] Routine Comment: Consulting Provider: Palliative Care Isabel Consult to Vascular Surgery [CONS] Routine Consulting Provider: Vascular Surgery Isabel Reason for Consult: please evaluate for b/l mottling of lower legs possible ischemic disease , currently on heparin drip. Call Completed: Yes Discharging clinician: Fredi Ashby Anticipated date of discharge: 10/06/16 - Patient Status Disposition: - Discharge Instructions Follow Up With: NO,PCP [Primary Care Provider] - Interval History: Ms. Hartman is a 81 year old female past medical history of hyperlipidemia hypertension MT atrial fibrillation pacemaker placement congestive heart failure CK D3. The patient was admitted recently to this facility with a non- STEMI, she was treated medically and was discharged to a extended care facility for further rehabilitation. According to F paperwork patient is a DNR CC. Information was obtained from medical records due to the patient's increased shortness of breath and inability to answer questions. The patient was sent to the ED by the nursing staff at the [facility] stating that she was experiencing bleeding from her rectum. The patient is on Eliquis for her atrial fibrillation. Per ER report the patient had a pressure ulcer on her sacrum which was oozing blood. Her anus is dilated with stool impacted into the rectal vault. There is no bloody stool or black stool in the rectum. The patient appeared to be in respiratory distress she is hypoxic 87% SPO2 chest x- ray revealed a near complete opacification of the left lung suspicious for large left pleural effusion with partial atelectasis of the left lung. Urinalysis also revealed a UTI. Her white count is 12.7 BUN is 85 and creatinine was 2.12 Blood cultures were obtained the patient was initiated on IV antibiotics. She has been admitted for further workup evaluation. Presently the patient appears to be in moderate respiratory distress she is audible wheezes and rhonchi. She is 93% on 3 L nasal cannula. She denies any chest pain this time. Hospital course: evan was admitted for acute respiratory distress most likely 2/2 acute exacerbation of CHF. CT chest was done that showed acute pulmonary edema and trace pleural effusion. she was started on IV lasix. during her hospital stay, she c/o severe leg pain b/l and b/l lower leg mottling was noted. b/l dorsalis pedis was not felt on exam, she had vascular study however no pulses or waveform was identifiable. she was started on heparin drip, vascular surgery was consulted, she was found to have Profound ischemia of lower extremities. Patient is not a candidate for any intervention as per vascular surgery. The patient is a DNR-CC which is appropriate for her present state with acute pulmonary edema and hypoxemia in natalie setting of recent NSTEMI and CHF. case was discussed with the family and notified that the patiene's medical condition is deteriorating, hence palliative care was consulted. unfortunately patient today afternoon. Time spent discussing smoking cessation with patient: more than 10 minutes - Time Spent with Patient Total time spent providing and/or coordinating discharge services: Greater than 30 minutes - Constitutional Vitals: Temp Pulse Resp BP Pulse Ox 97.4 F L 77 18 98/46 93 L 10/06/16 07:41 10/06/16 11:58 10/06/16 11:58 10/06/16 11:58 10/06/16 11:58 Exam: patient today afternoon. - VTE Documentation of Mechanical Device: Graduated compression elastic hosiery
== END 2016-10-06 14:20 | disposition expired | DRG 291 ==
LOC: EMEROO 17:09 → 2NNU 20:38 → INTOOBSV 20:38 → 2ANU 21:38
PROVIDERS: ADMIT Family Medicine; ATTEND Internal Medicine